=== PATIENT | male | born 1995 | race Caucasian/White ===

== ENCOUNTER 2024-12-27 14:08 | Emergency (ER) | payer OTHER ==
[2024-12-27 14:12] VITALS: RESP 18; TEMP 98.8
--- NOTE | 2024-12-27 14:29 | ED ---
Abdominal Pain HPI - General Chief Complaint: Abdominal Pain Stated Complaint: Abd Pain R Side Time Seen by Provider: 12/27/24 14:12 Source: patient, RN notes reviewed Mode of arrival: ambulatory Limitations: no limitations - History of Present Illness Initial Comments: 29-year-old male with no reported medical conditions presenting to the emergency room with referral from urgent care for concerns of right upper quadrant abdominal pain. Patient states over the past week he has been feeling mildly bloated and yesterday evening after he ate dinner he began to experience right upper abdominal pain. Patient states that if he went to bed the pain subsided. He ate breakfast which consisted of turkey sausage where the pain returned.) she had a small amount of close lower again the pain returned prompting him to report to the urgent care. Patient endorses intermittent nausea with no reported emesis. He states that the pain will mildly wrap around into his right chest. He denies difficulty breathing, diarrhea, constipation, urinary changes. Denies previous surgical abdominal history. - Related Data Home Medications Medication Instructions Recorded Confirmed No Known Home Medications 12/27/24 12/27/24 Allergies Allergy/AdvReac Type Severity Reaction Status Date / Time No Known Allergies Allergy Verified 12/27/24 15:39 Review of Systems ROS Statement: Those systems with pertinent positive or pertinent negative responses have been documented in the HPI. ROS Other: All systems not noted in ROS Statement are negative. Past Medical History Past Medical History: Hypertension Past Surgical History: No Surgical Hx Reported Past Psychological History: No Psychological Hx Reported Smoking Status: Never smoker Past Alcohol Use History: None Reported Past Drug Use History: None Reported General Exam Limitations: no limitations General appearance: alert, in no apparent distress ENT exam: Present: normal exam, mucous membranes moist Neck exam: Present: normal inspection. Absent: tenderness, meningismus, lymphadenopathy Respiratory exam: Present: normal lung sounds bilaterally. Absent: respiratory distress, wheezes, rales, rhonchi, stridor Cardiovascular Exam: Present: regular rate, normal rhythm, normal heart sounds. Absent: systolic murmur, diastolic murmur, rubs, gallop, clicks GI/Abdominal exam: Present: soft, tenderness (RUQ), normal bowel sounds. Absent: distended, guarding, rebound, rigid Extremities exam: Present: normal inspection, full ROM, normal capillary refill. Absent: tenderness, pedal edema, joint swelling, calf tenderness Back exam: Present: normal inspection. Absent: CVA tenderness (R), CVA tenderness (L) Course Vital Signs 12/27/24 14:09 Temperature 98.8 F Pulse Rate 84 Respiratory 18 Rate Blood Pressure 145/98 O2 Sat by Pulse 98 Oximetry Medical Decision Making - Medical Decision Making Was pt. sent in by a medical professional or institution (MACIEL Marie, CARGO AGENT, urgent care, hospital, or [facility]...) When possible be specific @ -No Did you speak to anyone other than the patient for history (EMS, parent, family, police, friend...)? What history was obtained from this source @ -No Did you review nursing and triage notes (agree or disagree)? Why? @ -I reviewed and agree with nursing and triage notes Were old charts reviewed (outside hosp., previous admission, EMS record, old EKG, old radiological studies, urgent care reports/EKG's, [facility] records)? Report findings @ -No old charts were reviewed Differential Diagnosis (chest pain, altered mental status, abdominal pain women, abdominal pain men, vaginal bleeding, weakness, fever, dyspnea, syncope, headache, dizziness, GI bleed, back pain, seizure, CVA, palpatations, mental health, musculoskeletal)? @ -Differential Abdominal Pain Men: Appendicitis, cholecystitis, diverticulosis, ischemic bowel, pancreatitis, hepatitis, UTI, gastroenteritis, AAA, incarcerated hernia, bowel obstruction, constipation, inflammatory bowel, hepatitis, peptic ulcer disease, splenic infarction, perforated viscus, testicular torsion, this is not meant to be an all-inclusive list EKG interpreted by me (3pts min.). @ -None X-rays interpreted by me (1pt min.). @ -None done CT interpreted by me (1pt min.). @ -None done U/S interpreted by me (1pt. min.). @ -Ultrasound of the gallbladder reveals no evidence of sonographic Azul sign with fatty infiltration of the liver, hepatomegaly present. Common bile duct and gallbladder within normal What testing was considered but not performed or refused? (CT, X-rays, U/S, labs)? Why? @ -None What meds were considered but not given or refused? Why? @ -None Did you discuss the management of the patient with other professionals (professionals i.e. MACIEL Marie, CARGO AGENT, lab, RT, psych nurse, licensed social worker, calcine furnace loader, teacher, chief medical officer, assistant case manager)? Give summary @ -No Was smoking cessation discussed for >3mins.? @ -No Was critical care preformed (if so, how long)? @ -No Were there social determinants of health that impacted care today? How? (Homelessness, low income, unemployed, alcoholism, drug addiction, tr ansportation, low edu. Level, literacy, decrease access to med. care, snf, rehab)? @ -No Was there de-escalation of care discussed even if they declined (Discuss DNR or withdrawal of care, Hospice)? DNR status @ -No What co-morbidities impacted this encounter? (DM, HTN, Smoking, COPD, CAD, Cancer, CVA, ARF, Chemo, Hep., AIDS, mental health diagnosis, sleep apnea, morbid obesity)? @ -None Was patient admitted / discharged? Hospital course, mention meds given and route, prescriptions, significant lab abnormalities, going to OR and other pertinent info. @ -discharged. 29-year-old male presenting to emergency room with referral from urgent care for concerns of right upper quadrant abdominal pain. Patient has reproducible pain to the right upper quadrant. He was offered pain medication however was declined. Patient will undergo laboratory testing and ultrasound imaging of the gallbladder for further evaluation. CBC and CMP is unremarkable. Ultrasound reveals no evidence of acute abdomen or abdominal process. Patient is provided with referral to general surgeon instructed follow-up with primary care provider in the next 1 to 3 days. Recommend that he keep a food diet log so he may determine which foods may be aggravating symptoms. Return parameters discussed at bedside. Patient stable for discharge. Case discussed with Dr. Pa Undiagnosed new problem with uncertain prognosis? @ -No Drug Therapy requiring intensive monitoring for toxicity (Heparin, Nitro, Insulin, Cardizem)? @ -No Were any procedures done? @ -No Diagnosis/symptom? @ -Abdominal pain Acute, or Chronic, or Acute on Chronic? @ -Acute Uncomplicated (without systemic symptoms) or Complicated (systemic symptoms)? @ -Uncomplicated Side effects of treatment? @ -No Exacerbation, Progression, or Severe Exacerbation? @ -No Poses a threat to life or bodily function? How? (Chest pain, [place], [place], pneumonia, PE, COPD, DKA, ARF, appy, cholecystitis, CVA, Diverticulitis, Homicidal, Suicidal, threat to staff... and all critical care pts) @ -No - Lab Data Result diagrams: 12/27/24 14:34 12/27/24 14:34 Lab Results 12/27/24 12/27/24 Range/Units 14:34 14:34 WBC 9.25 (4.50-10.00) 10*3/uL RBC 5.39 (4.40-5.60) 10*6/uL Hgb 17.3 H (13.0-17.0) g/dL Hct 49.8 (39.6-50.0) % MCV 92.4 (80.0-97.0) fL MCH 32.1 H (27.0-32.0) pg MCHC 34.7 (32.0-37.0) g/dL Plt Count 399 (140-440) 10*3/uL MPV 9.0 L (9.5-12.2) fL Immature Gran % (Auto) 0.2 % Neutrophils % 68.2 % Lymphocytes % 21.4 % Monocytes % 6.9 % Eosinophils % 2.5 % Basophils % 0.8 % Immature Gran # 0.02 (0.00-0.04) 10*3/uL Neutrophils # 6.31 (1.80-7.70) 10*3/uL Lymphocytes # 1.98 (0.90-5.00) 10*3/uL Monocytes # 0.64 (0.20-1.00) 10*3/uL Eosinophils # 0.23 (0.04-0.35) 10*3/uL Basophils # 0.07 (0.00-0.10) 10*3/uL Sodium 140 (137-145) mmol/L Potassium 4.3 (3.5-5.1) mmol/L Chloride 102 (98-107) mmol/L Carbon Dioxide 24 (22-30) mmol/L Anion Gap 14 mmol/L BUN 18 (9-20) mg/dL Creatinine 0.92 (0.66-1.25) mg/dL Est GFR (CKD-EPI)AfAm >90 (>60 ml/min/1.73 sqM) Est GFR (CKD-EPI)NonAf >90 (>60 ml/min/1.73 sqM) Glucose 96 (74-99) mg/dL Calcium 10.2 (8.4-10.2) mg/dL Total Bilirubin 0.7 (0.2-1.3) mg/dL AST 41 (17-59) U/L ALT 101 H (4-49) U/L Alkaline Phosphatase 99 (38-126) U/L Total Protein 8.9 H (6.3-8.2) g/dL Albumin 5.3 H (3.5-5.0) g/dL Amylase 71 (30-110) U/L Lipase 78 (23-300) U/L Disposition Clinical Impression: Upper abdominal pain, unspecified Disposition: HOME SELF-CARE Condition: Good Instructions (If sedation given, give patient instructions): Abdominal Pain (ED) Additional Instructions: Please return to the Emergency Department if symptoms worsen or any other concerns. Is patient prescribed a controlled substance at d/c from ED?: No Referrals: None,Stated [Primary Care Provider] - 1-2 days Andres Carvajal DO [Doctor of Osteopathic Medicine] - 1-2 days Time of Disposition: 15:38
[2024-12-27 14:41] LABS: Basophils # (A) 0.07 10*3/uL (0.00-0.10); Basophils % (A) 0.8 %; Eosinophils # (A) 0.23 10*3/uL (0.04-0.35); Eosinophils % (A) 2.5 %; HCT 49.8 % (39.6-50.0); HGB 17.3 g/dL (13.0-17.0); Lymphocytes # (A) 1.98 10*3/uL (0.90-5.00); Lymphocytes % (A) 21.4 %; MCH 32.1 pg (27.0-32.0); MCHC 34.7 g/dL (32.0-37.0); MCV 92.4 fL (80.0-97.0); Monocytes # (A) 0.64 10*3/uL (0.20-1.00); Monocytes % (A) 6.9 %; Neutrophils # (A) 6.31 10*3/uL (1.80-7.70); Neutrophils % (A) 68.2 %; Platelet Count 399 10*3/uL (140-440); RBC 5.39 10*6/uL (4.40-5.60); RDW 11.8 % (11.5-14.5); WBC 9.25 10*3/uL (4.50-10.00)
[2024-12-27 14:56] LABS: ALT 101 U/L (4-49); AST 41 U/L (17-59); African American GFR (CKD) >90 (>60 ml/min/1.73 sqM); Albumin 5.3 g/dL (3.5-5.0); Alkaline Phosphatase 99 U/L (38-126); Amylase 71 U/L (30-110); Anion Gap 14 mmol/L; Blood Urea Nitrogen 18 mg/dL (9-20); Calcium 10.2 mg/dL (8.4-10.2); Carbon Dioxide 24 mmol/L (22-30); Chloride 102 mmol/L (98-107); Glucose 96 mg/dL (74-99); Lipase 78 U/L (23-300); Non-African American GFR(CKD) >90 (>60 ml/min/1.73 sqM); Potassium 4.3 mmol/L (3.5-5.1); Sodium 140 mmol/L (137-145); Total Bilirubin 0.7 mg/dL (0.2-1.3); Total Protein 8.9 g/dL (6.3-8.2)
--- NOTE | 2024-12-27 15:11 | US ---
EXAMINATION TYPE: US gallbladder DATE OF EXAM: 12/27/2024 COMPARISON: NONE CLINICAL INDICATION: Male, 29 years old with history of RUQ ab pain X24 H, worse after eating; TECHNIQUE: Grayscale and color Doppler imaging of the right upper quadrant was performed. FINDINGS: EXAM MEASUREMENTS: Liver Length: 19.6 cm Gallbladder Wall: 0.2 cm CBD: 0.3 cm Right Kidney: 11.5 x 5.3 x 5.1 cm BLOCK SAW OPERATOR NOTES:Suboptimal exam due to large body habitus. Patient is not NPO Pancreas: Tail obscured by overlying bowel gas Liver: Increased attenuation, decreased visualization of vessels suggestive of fatty infiltrate Gallbladder: appears wnl Evidence for sonographic Azul's sign: no CBD: wnl Right Kidney: wnl IMPRESSION: 1. Fatty infiltration liver. Hepatomegaly is present. [facility], , 12/27/2024 3:09 PM
[2024-12-27 16:40] VITALS: BP 142/98; PULSE 81
== END 2024-12-27 16:40 | disposition home or self-care (01) ==
LOC: EC 14:08
DX: R10.11 Right upper quadrant pain (principal)
CPT/HCPCS: 36415; 76705; 80053; 82150; 83690; 85025; 99284

== ENCOUNTER 2025-01-08 11:39 | Emergency (ER) | payer OTHER ==
[2025-01-08 11:45] VITALS: TEMP 98
--- NOTE | 2025-01-08 13:04 | ED ---
General Adult HPI - General Chief complaint: Abdominal Pain Stated complaint: R sided flank pain Time Seen by Provider: 01/08/25 12:35 Source: patient, RN notes reviewed Mode of arrival: ambulatory Limitations: no limitations - History of Present Illness Initial comments: Patient is a 29-year-old male present to the emergency department with concerns with right flank pain. Onset of symptoms was a couple hours ago. Symptoms have improved and are now near resolved. Discomfort was right lower lateral flank. No nausea or vomiting. No fever. No urinary symptoms. Patient did have similar symptoms a week ago on the left side and was concerned of a kidney stone. Patient did go to a different facility and was told there was a nonobstructing stone in his left kidney. - Related Data Home Medications Medication Instructions Recorded Confirmed No Known Home Medications 12/27/24 12/27/24 Allergies Allergy/AdvReac Type Severity Reaction Status Date / Time No Known Allergies Allergy Verified 01/08/25 11:44 Review of Systems ROS Statement: Those systems with pertinent positive or pertinent negative responses have been documented in the HPI. ROS Other: All systems not noted in ROS Statement are negative. Constitutional: Denies: fever Eyes: Denies: eye pain ENT: Denies: ear pain Respiratory: Denies: cough, dyspnea Cardiovascular: Denies: chest pain Gastrointestinal: Reports: as per HPI, abdominal pain. Denies: vomiting Musculoskeletal: Denies: back pain Neurological: Denies: weakness Past Medical History Past Medical History: Hypertension Past Surgical History: No Surgical Hx Reported Past Psychological History: No Psychological Hx Reported Smoking Status: Never smoker Past Alcohol Use History: None Reported Past Drug Use History: None Reported General Exam Limitations: no limitations General appearance: alert, in no apparent distress Head exam: Present: normocephalic Eye exam: Present: normal appearance Neck exam: Present: normal inspection Respiratory exam: Present: normal lung sounds bilaterally Cardiovascular Exam: Present: regular rate, normal rhythm Expanded Peripheral pulses: 2+: Posterior Tibialis (R), Posterior Tibialis (L) GI/Abdominal exam: Present: soft, tenderness (Mild tenderness right lateral flank). Absent: distended, guarding, rebound, rigid, pulsatile mass Extremities exam: Present: normal inspection. Absent: pedal edema, calf tenderness Neurological exam: Present: alert Psychiatric exam: Present: normal affect, normal mood Skin exam: Present: normal color Course Vital Signs 01/08/25 11:43 Temperature 98 F Pulse Rate 93 Respiratory 18 Rate Blood Pressure 148/108 O2 Sat by Pulse 97 Oximetry Medical Decision Making - Medical Decision Making Was pt. sent in by a medical professional or institution (MACIEL Marie, ENTRY LEVEL PROJECT ENGINEER, urgent care, hospital, or fdc...) When possible be specific @ -No Did you speak to anyone other than the patient for history (EMS, parent, family, police, friend...)? What history was obtained from this source @ -No Did you review nursing and triage notes (agree or disagree)? Why? @ -I reviewed and agree with nursing and triage notes Were old charts reviewed (outside hosp., previous admission, EMS record, old EKG, old radiological studies, urgent care reports/EKG's, fdc records)? Report findings @ -No old charts were reviewed Differential Diagnosis (chest pain, altered mental status, abdominal pain women, abdominal pain men, vaginal bleeding, weakness, fever, dyspnea, syncope, he adache, dizziness, GI bleed, back pain, seizure, CVA, palpatations, mental health, musculoskeletal)? @ -Differential Abdominal Pain Men: Appendicitis, cholecystitis, diverticulosis, ischemic bowel, pancreatitis, hepatitis, UTI, gastroenteritis, AAA, incarcerated hernia, bowel obstruction, constipation, inflammatory bowel, hepatitis, peptic ulcer disease, splenic infarction, perforated viscus, testicular torsion, this is not meant to be an all-inclusive list EKG interpreted by me (3pts min.). @ -As above X-rays interpreted by me (1pt min.). @ -None done CT interpreted by me (1pt min.). @ -CT scan abdomen pelvis without acute abnormality. Left renal stone 3 mm U/S interpreted by me (1pt. min.). @ -None done What testing was considered but not performed or refused? (CT, X-rays, U/S, l abs)? Why? @ -None What meds were considered but not given or refused? Why? @ -None Did you discuss the management of the patient with other professionals (professionals i.e. MACIEL Marie, ENTRY LEVEL PROJECT ENGINEER, lab, RT, psych nurse, social services counselor, wet primer powder blender, teacher, corporate security officer, immigration case manager)? Give summary @ -No Was smoking cessation discussed for >3mins.? @ -No Was critical care preformed (if so, how long)? @ -No Were there social determinants of health that impacted care today? How? (Homelessness, low income, unemployed, alcoholism, drug addiction, transportation, low edu. Level, literacy, decrease access to med. care, shelter, rehab)? @ -No Was there de-escalation of care discussed even if they declined (Discuss DNR or withdrawal of care, Hospice)? DNR status @ -No What co-morbidities impacted this encounter? (DM, HTN, Smoking, COPD, CAD, Cancer, CVA, ARF, Chemo, Hep., AIDS, mental health diagnosis, sleep apnea, morbid obesity)? @ -None Was patient admitted / discharged? Hospital course, mention meds given and route, prescriptions, significant lab abnormalities, going to OR and other pertinent info. @ -Patient presents with right flank pain, near resolved on arrival. On reevaluation patient is symptom-free. Patient is updated on results and need for follow-up. It does appear the patient has had several visits for this and is recommended follow-up with primary care physician and GI. Patient states symptoms are only lasting 30 to 60 minutes and therefore pain medication will not be provided at this time. Patient demonstrates understanding. Undiagnosed new problem with uncertain prognosis? @ -No Drug Therapy requiring intensive monitoring for toxicity (Heparin, Nitro, Insulin, Cardizem)? @ -No Were any procedures done? @ -No Diagnosis/symptom? @ -Abdominal pain Acute, or Chronic, or Acute on Chronic? @ -Acute Uncomplicated (without systemic symptoms) or Complicated (systemic symptoms)? @ -Default Side effects of treatment? @ -No Exacerbation, Progression, or Severe Exacerbation? @ -No Poses a threat to life or bodily function? How? (Chest pain, [place], [place], pneumonia, PE, COPD, DKA, ARF, appy, cholecystitis, CVA, Diverticulitis, Homicidal, Suicidal, threat to staff... and all critical care pts) @ -No - Lab Data Result diagrams: 01/08/25 13:08 01/08/25 13:08 Lab Results 01/08/25 01/08/25 01/08/25 Range/Units 13:08 13:08 13:08 WBC 9.08 (4.50-10.00) 10*3/uL RBC 5.40 (4.40-5.60) 10*6/uL Hgb 17.5 H (13.0-17.0) g/dL Hct 49.5 (39.6-50.0) % MCV 91.7 (80.0-97.0) fL MCH 32.4 H (27.0-32.0) pg MCHC 35.4 (32.0-37.0) g/dL Plt Count 403 (140-440) 10*3/uL MPV 9.1 L (9.5-12.2) fL Immature Gran % (Auto) 0.2 % Neutrophils % 72.1 % Lymphocytes % 17.6 % Monocytes % 8.0 % Eosinophils % 1.2 % Basophils % 0.9 % Immature Gran # 0.02 (0.00-0.04) 10*3/uL Neutrophils # 6.54 (1.80-7.70) 10*3/uL Lymphocytes # 1.60 (0.90-5.00) 10*3/uL Monocytes # 0.73 (0.20-1.00) 10*3/uL Eosinophils # 0.11 (0.04-0.35) 10*3/uL Basophils # 0.08 (0.00-0.10) 10*3/uL PT 10.8 (10.0-12.5) sec INR 1.0 (<1.2) APTT 23.5 (22.0-30.0) sec Sodium (137-145) mmol/L Potassium (3.5-5.1) mmol/L Chloride (98-107) mmol/L Carbon Dioxide (22-30) mmol/L Anion Gap mmol/L BUN (9-20) mg/dL Creatinine (0.66-1.25) mg/dL Est GFR (CKD-EPI)AfAm (>60 ml/min/1.73 sqM) Est GFR (CKD-EPI)NonAf (>60 ml/min/1.73 sqM) Glucose (74-99) mg/dL Calcium (8.4-10.2) mg/dL Total Bilirubin (0.2-1.3) mg/dL AST (17-59) U/L ALT (4-49) U/L Alkaline Phosphatase (38-126) U/L Total Protein (6.3-8.2) g/dL Albumin (3.5-5.0) g/dL Amylase (30-110) U/L Lipase (23-300) U/L Urine Color Colorless Urine Appearance Clear (Clear) Urine pH 6.5 (5.0-8.0) Ur Specific Newborn 1.004 (1.001-1.035) Urine Protein Negative (Negative) Urine Glucose (UA) Negative (Negative) Urine Ketones Negative (Negative) Urine Blood Negative (Negative) Urine Nitrite Negative (Negative) Urine Bilirubin Negative (Negative) Urine Urobilinogen <2.0 (<2.0) mg/dL Ur Leukocyte Esterase Negative (Negative) 01/08/25 Range/Units 13:08 WBC (4.50-10.00) 10*3/uL RBC (4.40-5.60) 10*6/uL Hgb (13.0-17.0) g/dL Hct (39.6-50.0) % MCV (80.0-97.0) fL MCH (27.0-32.0) pg MCHC (32.0-37.0) g/dL Plt Count (140-440) 10*3/uL MPV (9.5-12.2) fL Immature Gran % (Auto) % Neutrophils % % Lymphocytes % % Monocytes % % Eosinophils % % Basophils % % Immature Gran # (0.00-0.04) 10*3/uL Neutrophils # (1.80-7.70) 10*3/uL Lymphocytes # (0.90-5.00) 10*3/uL Monocytes # (0.20-1.00) 10*3/uL Eosinophils # (0.04-0.35) 10*3/uL Basophils # (0.00-0.10) 10*3/uL PT (10.0-12.5) sec INR (<1.2) APTT (22.0-30.0) sec Sodium 141 (137-145) mmol/L Potassium 4.4 (3.5-5.1) mmol/L Chloride 104 (98-107) mmol/L Carbon Dioxide 22 (22-30) mmol/L Anion Gap 15 mmol/L BUN 16 (9-20) mg/dL Creatinine 0.85 (0.66-1.25) mg/dL Est GFR (CKD-EPI)AfAm >90 (>60 ml/min/1.73 sqM) Est GFR (CKD-EPI)NonAf >90 (>60 ml/min/1.73 sqM) Glucose 106 H (74-99) mg/dL Calcium 10.0 (8.4-10.2) mg/dL Total Bilirubin 0.8 (0.2-1.3) mg/dL AST 42 (17-59) U/L ALT 92 H (4-49) U/L Alkaline Phosphatase 95 (38-126) U/L Total Protein 8.9 H (6.3-8.2) g/dL Albumin 5.3 H (3.5-5.0) g/dL Amylase 57 (30-110) U/L Lipase 60 (23-300) U/L Urine Color Urine Appearance (Clear) Urine pH (5.0-8.0) Ur Specific Newborn (1.001-1.035) Urine Protein (Negative) Urine Glucose (UA) (Negative) Urine Ketones (Negative) Urine Blood (Negative) Urine Nitrite (Negative) Urine Bilirubin (Negative) Urine Urobilinogen (<2.0) mg/dL Ur Leukocyte Esterase (Negative) Disposition Clinical Impression: Abdominal pain Disposition: HOME SELF-CARE Condition: Stable Instructions (If sedation given, give patient instructions): Abdominal Pain (ED) Additional Instructions: Please do follow-up with your primary care physician in the next couple of days for recheck. Please also follow-up with GI if symptoms continue, consider endoscopy. Return for increased pain, fever, vomiting, worsening or changing symptoms or other concerns. Is patient prescribed a controlled substance at d/c from ED?: No Referrals: None,Stated [Primary Care Provider] - 1-2 days Bindu Best MD [STAFF PHYSICIAN] - 1-2 days Forms: [facility] Area PCPs Time of Disposition: 14:16
[2025-01-08 13:23] LABS: Basophils # (A) 0.08 10*3/uL (0.00-0.10); Basophils % (A) 0.9 %; Eosinophils # (A) 0.11 10*3/uL (0.04-0.35); Eosinophils % (A) 1.2 %; HCT 49.5 % (39.6-50.0); HGB 17.5 g/dL (13.0-17.0); Lymphocytes # (A) 1.60 10*3/uL (0.90-5.00); Lymphocytes % (A) 17.6 %; MCH 32.4 pg (27.0-32.0); MCHC 35.4 g/dL (32.0-37.0); MCV 91.7 fL (80.0-97.0); Monocytes # (A) 0.73 10*3/uL (0.20-1.00); Monocytes % (A) 8.0 %; Neutrophils # (A) 6.54 10*3/uL (1.80-7.70); Neutrophils % (A) 72.1 %; Platelet Count 403 10*3/uL (140-440); RBC 5.40 10*6/uL (4.40-5.60); RDW 11.9 % (11.5-14.5); WBC 9.08 10*3/uL (4.50-10.00)
[2025-01-08 13:26] LABS: Bilirubin,Urine Negative (Negative); Blood,Urine Negative (Negative); Color,Urine Colorless; Glucose,Urine (UA) Negative (Negative); Ketones,Urine Negative (Negative); Leukocyte Esterase,Urine Negative (Negative); Nitrite,Urine Negative (Negative); PH, Urine 6.5 (5.0-8.0); Protein,Urine Negative (Negative); Specific Gravity,Urine 1.004 (1.001-1.035); Urobilinogen,Urine <2.0 mg/dL (<2.0)
[2025-01-08] MEDS: SODIUM CHLORIDE 0.9% 1,000 ML IV SCH (13:26)
[2025-01-08 13:38] LABS: ALT 92 U/L (4-49); African American GFR (CKD) >90 (>60 ml/min/1.73 sqM); Albumin 5.3 g/dL (3.5-5.0); Amylase 57 U/L (30-110); Anion Gap 15 mmol/L; Blood Urea Nitrogen 16 mg/dL (9-20); Calcium 10.0 mg/dL (8.4-10.2); Carbon Dioxide 22 mmol/L (22-30); Chloride 104 mmol/L (98-107); Glucose 106 mg/dL (74-99); Lipase 60 U/L (23-300); Non-African American GFR(CKD) >90 (>60 ml/min/1.73 sqM); Sodium 141 mmol/L (137-145); Total Protein 8.9 g/dL (6.3-8.2)
[2025-01-08 13:40] LABS: AST 42 U/L (17-59); Alkaline Phosphatase 95 U/L (38-126); Potassium 4.4 mmol/L (3.5-5.1)
--- NOTE | 2025-01-08 13:55 | CT ---
EXAMINATION TYPE: CT abdomen pelvis wo con DATE OF EXAM: 01/08/2025 COMPARISON: None CLINICAL INDICATION: Male, 29 years old with history of abdominal pain; PHH, Abdominal pain, Positive nausea, negative D&V. TECHNIQUE: CT scan of the abdomen and pelvis is performed without oral or IV contrast. CT DLP: 1733.[address] CTDI: mGy Automated exposure control for dose reduction was used. FINDINGS: Within the limitations of a non-contrast study, the following observations are made. The lungs are clear. Gallbladder is normal and there is no gallstone, wall thickening, pericholecystic fluid or distention . There is no biliary ductal dilatation. There is no organomegaly of the liver, pancreas, spleen or adrenal glands. There is moderate liver st eatosis There is a 3 mm nonobstructing left renal calcification. The caliber of the abdominal aorta is normal and there is no retroperitoneal adenopathy or hemorrhage . The bowel loops are normal in caliber is no evidence of obstruction. No inflammatory changes are iden tified in the mesentery and there is no free intraperitoneal air or fluid. There is no pelvic mass, free fluid, abscess or adenopathy. Normal appendix. The osseous structures and soft tissues are unremarkable. IMPRESSION: 1. Moderate liver steatosis. 2 nonobstructing 3 mm left renal calcification. [facility], , 01/08/2025 1:53 PM
[2025-01-08 14:00] LABS: INR 1.0 (<1.2); Partial Thromboplastin Time 23.5 sec (22.0-30.0); Prothrombin Time 10.8 sec (10.0-12.5)
[2025-01-08 14:39] VITALS: BP 154/89; PULSE 84; RESP 16
== END 2025-01-08 14:38 | disposition home or self-care (01) ==
LOC: EC 11:39
DX: R10.31 Right lower quadrant pain (principal)
CPT/HCPCS: 36415; 74176; 80053; 81003; 82150; 83690; 85025; 85610; 85730; 96360; 99284